=== PATIENT | male | born 1970 | race Two or more races ===

== ENCOUNTER 2023-08-19 15:40 | Emergency (ER) | payer OTHER ==
[~2023-08-19] VITALS: Ht 170.2 cm; Wt 82.6 kg
[2023-08-19] MEDS ORDERED: KETOROLAC TROMETH 60MG/2ML VIAL IM ONE (19:15)
[2023-08-19] MEDS ORDERED: IBUP-1455 PO (20:22)
[2023-08-19] MEDS ORDERED: CYCL-837 PO (20:22)
[2023-08-19 22:53] VITALS: BP 125/84; PULSE 87; RESP 18; TEMP 98.2; O2SAT 99
== END 2023-08-19 22:54 | disposition home or self-care (01) ==
LOC: ER 15:40
DX: S20.219A Contusion of unspecified front wall of thorax, initial encounter (principal); V43.52XA Car driver injured in collision with other type car in traffic accident, initial encounter; Y93.89 Activity, other specified; Y92.410 Unspecified street and highway as the place of occurrence of the external cause; Y99.8 Other external cause status
CPT/HCPCS: 71046; 71250; 74176; 96372; 99285; J1885